=== PATIENT | male | born 1975 | race Hispanic/Latino ===

== ENCOUNTER 2018-04-14 08:24 | Emergency (ER) | payer SELFPAY ==
[2018-04-14] MEDS ORDERED: KETOROLAC TROMETHAMINE 60 MG/2 ML VIAL ONE (08:40)
== END 2018-04-14 09:30 | disposition home or self-care (01) ==
LOC: EDH 08:24
DX: S40.012A Contusion of left shoulder, initial encounter (principal); Z87.891 Personal history of nicotine dependence; W18.39XA Other fall on same level, initial encounter; Y93.89 Activity, other specified; Y92.098 Other place in other non-institutional residence as the place of occurrence of the external cause; Y99.8 Other external cause status
CPT/HCPCS: 73030; 99283; J1885

== ENCOUNTER 2022-12-19 06:01 | Emergency (ER) | payer BC ==
[~2022-12-19] VITALS: Ht 160 cm; Wt 69.9 kg
[2022-12-19 06:26] LABS: BASOPHILS # (AUTO) 0.11 K/uL (0.00-0.20); EOSINOPHILS # (AUTO) 0.71 K/uL (0.00-0.70); EOSINOPHILS % (AUTO) 6.7 % (0.0-8.0); HEMATOCRIT 43.9 % (42-54); IMMATURE GRANULOCYTE ABSOLUTE 0.02 K/uL (0-1); LYMPHOCYTES # (AUTO) 4.1 K/uL (1.0-4.8); LYMPHOCYTES % (AUTO) 38.9 % (21.0-51.0); MEAN CORPUSCULAR HEMOGLOBIN 32.6 pg (27.0-33.0); MEAN CORPUSCULAR HGB CONC 34.9 g/dL (32.0-36.0); MEAN CORPUSCULAR VOLUME 93.6 fL (79-99); MONOCYTES # (AUTO) 0.9 K/uL (0.1-1.0); MONOCYTES % (AUTO) 8.8 % (3.0-13.0); NEUTROPHILS # (AUTO) 4.7 K/uL (1.8-7.7); NEUTROPHILS % (AUTO) 44.4 % (40.0-77.0); PLATELET COUNT (AUTO) 247 K/uL (130-400); RED BLOOD CELL COUNT(AUTO) 4.69 MIL/uL (4.50-6.20); RED CELL DISTRIBUTION WIDTH 12.1 % (11.0-15.5); WHITE BLOOD COUNT (AUTO) 10.6 K/uL (4.8-10.8)
[2022-12-19] MEDS ORDERED: FAMOTIDINE 20MG VIAL IV ONE (06:30)
[2022-12-19] MEDS ORDERED: METOCLOPRAMIDE 10 MG/2 ML VIAL IVP ONE (06:30)
[2022-12-19] MEDS ORDERED: 0.9%NACL 1000ML 1,000 ML IV ONE ×2 (06:30→08:00)
[2022-12-19] MEDS ORDERED: KETOROLAC 30MG VIAL (30MG/ML) IVP ONE (06:30)
[2022-12-19 06:36] LABS: ALBUMIN 4.2 g/dL (3.5-5.0); CREATININE 1.2 mg/dL (0.5-1.5)
[2022-12-19 06:41] LABS: BILIRUBIN,TOTAL 0.8 mg/dL (0.2-1.0); TOTAL PROTEIN, SERUM 8.4 g/dL (6.0-8.3)
[2022-12-19] MEDS ORDERED: ONDANSETRON 4MG INJ ONE (06:42)
[2022-12-19] MEDS ORDERED: MORPHINE 4 MG SYG ONE (06:42)
[2022-12-19] MEDS ORDERED: MORPHINE 4 MG SYG IVP ONE (07:00)
[2022-12-19] MEDS ORDERED: ONDANSETRON 4MG INJ IVP ONE (07:00)
[2022-12-19] MEDS ORDERED: KCL 20 MEQ ERTAB PO ONE (08:00)
[2022-12-19] MEDS ORDERED: ONDA4TAB10 PO (08:01)
[2022-12-19] MEDS ORDERED: IBUP-2070 PO (08:01)
[2022-12-19] MEDS ORDERED: HYDR-4060 PO (08:01)
[2022-12-19] MEDS ORDERED: TAMS-1 PO (08:04)
[2022-12-19 08:19] LABS: APPEARANCE,URINE CLOUDY (CLEAR); BILIRUBIN,URINE NEGATIVE (NEGATIVE); COLOR,URINE YELLOW (YELLOW); GLUCOSE, URINE (UA) NEGATIVE (NEGATIVE); KETONES,URINE 10 mg/dL (NEGATIVE); LEUKOCYTE ESTERASE ,URINE NEGATIVE Leu/uL (NEGATIVE); NITRATE,URINE NEGATIVE (NEGATIVE); OCCULT BLOOD,URINE LARGE (NEGATIVE); PH,URINE 5.5 (5.0-8.0); PROTEIN,URINE 70 mg/dL (NEGATIVE)
[2022-12-19 08:27] LABS: ADD UA MICROSCOPIC YES
[2022-12-19 08:31] LABS: BACTERIA,URINE FEW /HPF (None Seen); MUCUS,URINE MANY LPF (None Seen); RBC,URINE 51-100 /HPF (0-1)
[2022-12-19] MEDS ORDERED: HYDROMORPHONE 0.5 MG SYG (0.5MG/0.5ML) IVP ONE (09:30)
[2022-12-19 10:52] VITALS: BP 124/75; PULSE 52; RESP 18; O2SAT 98
== END 2022-12-19 10:54 | disposition home or self-care (01) ==
LOC: EDH 06:01
DX: N13.2 Hydronephrosis with renal and ureteral calculous obstruction (principal); Z79.899 Other long term (current) drug therapy
CPT/HCPCS: 99284; 74176; 96375; 96374; 96361; 80053; 83690; 85025; 81001; 36415; J3490; J7030 ×2; J2405; J2270; J1885; J2765; J1170

== ENCOUNTER 2024-03-06 06:34 | Emergency (ER) | payer SELFPAY ==
[~2024-03-06] VITALS: Ht 152.4 cm; Wt 72.6 kg
[~2024-03-06 06:34] MED LIST: HYDR-4060 PO; IBUP-2070 PO; ONDA-243 PO; TAMS-1 PO
--- NOTE | 2024-03-06 07:22 | ERN ---
General Chief Complaint: Shoulder Injury/Pain Stated Complaint: PAIN TO LT SHOULDER, BACK/LT ARM W/MUSCLE SPASM Time Seen by MD: 07:02 Source: patient History of Present Illness Initial Comments This is a 48-year-old male coming in to be evaluated for left shoulder discomfort. Per patient this has been ongoing for one month. Patient states that does not recall hurting himself but feels as if there is a nerve inflammation. Allergies: Coded Allergies: No Known Allergies (Unverified Allergy, Unknown, 12/19/22) Home Meds Active Scripts Tamsulosin HCl (Flomax) 0.4 Mg Cap.er.24h, 0.4 MG PO DAILY, #7 CAPSULE.DR Prov:JASWINDER SERRA MD 12/19/22 Ondansetron (Ondansetron Odt) 4 Mg Tab.rapdis, 4 MG PO Q6HPRN PRN for nausea, #16 TAB 0 Refills Prov:JASWINDER SERRA MD 12/19/22 Hydrocodone/Acetaminophen (Hydrocodon-Acetaminophen 5-325) 5 Mg-325 Mg Tablet, 1 EACH PO Q6H for pain, #12 TAB 0 Refills Prov:JASWINDER SERRA MD 12/19/22 Ibuprofen (Ibuprofen) 600 Mg Tablet, 600 MG PO Q6H PRN for PAIN, #20 TAB Prov:JASWINDER SERRA MD 12/19/22 Past Medical History Past Medical History: No Pertinent History Past Surgical History: None ROS Dictation CONSTITUTIONAL: No chills, no fever, no weakness, no diaphoresis, no malaise. HEAD/FACE: No signs of trauma. EENT: No eye pain, no blurred vision, no tearing, no double vision, no ear pain, no ear discharge, no nose pain, no nasal congestion, no throat pain, no throat swelling, no mouth pain. RESPIRATORY: No cough, no orthopnea, no SOB, no stridor, no wheezing. CARDIOVASCULAR: No chest pain, no edema, no palpitations, no syncope. GASTROINTESTINAL/ABDOMINAL: No abdominal pain, no constipation, no diarrhea, no nausea, no vomiting. GENITOURINARY: No abnormal discharge, no dysuria, no frequent urination, no hematuria. No complaints of pain in the genitals. MUSCULOSKELETAL: No back pain, no gout, no joint pain, joint swelling, muscle pain, muscle stiffness, no neck pain. INTEGUMENTARY: No change in color, no change in hair/nails, no dryness, no lesion, no lumps, no rash. NEUROLOGICAL/PSYCH: No anxiety, not depressed, no emotional problem, no headac he, no numbness, no pre-existing deficit, no history of seizures, no tremors, no weakness. HEMATOLOGIC/LYMPHATIC: Not anemic, no history of blood clots, no apparent bleeding, no bruising, glands not swollen. All Systems Negative, Except as Noted. Physical Exam Physical Exam Dictation VITAL SIGNS: Reviewed. GENERAL APPEARANCE: Alert, oriented x3, no acute distress, obese. HEAD AND FACE: Non-traumatic. EYES: PERRL, pink conjunctivas, eyelid no trauma, anterior chamber clear. EARS: Pinnas intact and no signs of trauma or erythema. Ear canals clear and no discharge. TMs no erythema. NOSE: No discharge, no bleeding. OROPHARYNX: Mouth normal, teeth no caries, tongue pink. Pharynx clear, no erythema. Tonsils no exudates, no abscesses noted. Mucous membrane moist. NECK: Supple, non-tender, no thyromegaly, no masses, no JVD, no bruits. BREAST: Deferred. CHEST: No tenderness, no crepitus, no paradoxical movement, no retractions. LUNGS: Clear, well-ventilated, symmetric, no rales, no wheezing, no rhonchi, no stridor, good breath sounds bilaterally. HEART: Regular rate, regular rhythm, no murmur, no gallops. VASCULAR: No peripheral edema. ABDOMEN: Soft, positive bowel sounds, nondistended, no guarding, nontender, no rebound, no masses no hepatomegaly, no splenomegaly, no De Jesus's sign, no hernias. RECTAL: Deferred. GENITAL: Deferred. NEUROLOGICAL: Normal speech, gross motor function intact, gross sensory function intact. MUSCULOSKELETAL: Neck nontender, full range of motion, back nontender, full range of motion. EXTREMITIES: Nontender, full range of motion. Left subscapularis discomfort on palpation, SKIN: Color pink, dry, no turgor, no rash, no lacerations, no abrasions, no contusions. LYMPHATICS: Deferred. Results Laboratory and Microbiology Labs Reviewed?: Yes EKG/XRAY/US/CT/MRI EKG Comment 03/06/2024 time 8:07 a.m. Ventricular rate 59 Sinus rhythm [place] [address] wave elevation or depression MDM MDM: Differential diagnosis: Muscle strain, muscle spasm, shoulder strain, Patient is a 48-year-old gentleman coming in to be evaluated for shoulder strain. Patient states that this has been ongoing for several months. Patient received antispasmodics and steroids and states he feels much better. Patient will be discharged with the same medication diagnosis of muscle strain I advised him appropriate follow up with PCP for long-term management. ED Course Orders Procedure Category Date Status Time Orphenadrine Citrate PHA 03/06/24 Complete (Norflex) 07:30 Triamcinolone Acet PHA 03/06/24 Complete 40mg/Ml 1ml (Kenalog 07:30 12 Lead Ekg Tracing- EKG 03/06/24 Complete Technical 07:08 Current Medications Medications (Trade) Dose Ordered Sig/Bunny Route PRN Reason Start Time Stop Time Status Last Admin Dose Admin Orphenadrine Citrate (Norflex) 60 mg ONCE ONCE IM 03/06/24 07:30 03/06/24 07:31 DC 03/06/24 07:57 Triamcinolone Acetonide (Kenalog 40) 40 mg ONCE ONCE IM 03/06/24 07:30 03/06/24 07:31 DC 03/06/24 07:57 Vital Signs Date Time Temp Pulse Resp B/P (MAP) Pulse Ox O2 Delivery O2 Flow Rate FiO2 03/06/24 08:05 97.9 61 16 159/93 97 Room Air* 0 21 03/06/24 06:39 97.2 64 20 128/85 100 Room Air DX & DISP Disposition: Discharge Departure Impression: Primary Impression: Shoulder strain Condition: Stable Scripts Methocarbamol (Robaxin) 750 Mg Tab 1 TAB PO BID for 7 Days, #14 TAB 0 Refills Prov: MALCOLM BOGGS MD 03/06/24 Naproxen (Naproxen) 375 Mg Tablet. 375 MG PO BID for 7 Days, #14 TAB Prov: MALCOLM BOGGS MD 03/06/24 Additional Instructions: FOLLOW-UP WITH PRIMARY CARE PROVIDER IN 1 TO 2 DAYS. TAKE MEDICATIONS DIRECTED HERE IN THE EMERGENCY ROOM. OKAY TO CONTINUE HOME MEDICATIONS UNLESS OTHERWISE DISCUSSED DURING YOUR VISIT IN THE EMERGENCY ROOM TODAY. RETURN TO YOUR NEAREST EMERGENCY ROOM IF SYMPTOMS WORSEN OR IF THERE IS NO IMPROVEMENT. CALL 911 IF YOU NEED IMMEDIATE ASSISTANCE. TAKE TYLENOL [id number] NEEDED AND IF NO CONTRAINDICATIONS ARE PRESENT. INCREASE ORAL HYDRATION. A WOUND CULTURE OR URINE CULTURE WAS ORDERED HERE IN THE EMERGENCY ROOM DEPARTMENT PLEASE FOLLOW-UP WITH PRIMARY CARE PROVIDER AND ADVISE THEM TO GET REPEAT PORTS FROM OUR FACILITY. IF YOU HAD ANY NATTY WRAP/SPLINTS THAT WERE APPLIED HERE, PLEASE DO NOT REMOVE THEM UNTIL YOU SEE YOUR PRIMARY CARE OR SPECIALTY. Referrals: Referrals: SELF,REFERRAL (PCP) BRITTANY NAIK MD Time of Disposition: 08:41 MALCOLM BOGGS MD Mar 06, 2024 07:22
[2024-03-06] MEDS: TRIAMCINOLONE ACETONIDE 40 MG/ML 1ML VIAL IM ONE (07:57)
[2024-03-06] MEDS: ORPHENADRINE 60MG/2ML IM ONE (07:57)
[2024-03-06 08:05] VITALS: BP 159/93; PULSE 61; RESP 16; TEMP 97.8; O2SAT 97
--- NOTE | 2024-03-06 08:17 | EKG ---
[facility] Test Date: 2024-03-06 Test Time: 08:07:02 Pat Name: HANNAH HERNANDEZ Department: ED Room: Gender: Master Carpenter: [facility] : 1975 Requested By: MALCOLM BOGGS Order Number: [id number] Reading MD: Hung Vieira Measurements Intervals [place] Rate: 59 P: 50 WI: 139 QRS: 37 QRSD: 89 T: 48 QT: 397 QTc: 394 Interpretive Statements Sinus rhythm No previous ECG available for comparison Electronically Signed On 03-06-2024 19:37:47 REFRESH TECHNICIAN by Hung Vieira Please click the below link to view image of tracing.
[2024-03-06] MEDS ORDERED: METH-662 PO (08:42)
[2024-03-06] MEDS ORDERED: NAPR-1505 PO (08:42)
== END 2024-03-06 08:51 | disposition home or self-care (01) ==
LOC: EDH 06:34
DX: S46.812A Strain of other muscles, fascia and tendons at shoulder and upper arm level, left arm, initial encounter (principal); Z79.899 Other long term (current) drug therapy; X58.XXXA Exposure to other specified factors, initial encounter; Y93.89 Activity, other specified; Y92.89 Other specified places as the place of occurrence of the external cause; Y99.8 Other external cause status
CPT/HCPCS: 99284; 96372 ×2; 93005; J3301; J2360